=== PATIENT | male | born 1965 | race Caucasian/White ===

== ENCOUNTER → 2022-06-08 | Outpatient (CLI) | payer BC ==
[~2022-06-08] MED LIST: ALLO300T OR; AMLO25TA PO; ATEN25TA OR; BP MED PO; EMERON; EMERON OR; GOUT MED PO; HYDR25TA6; HYDR25TA6 OR; K-TA10TA OR; KLOR10TA; KLOR10TA OR; LISI10TA4; LISI10TA4 OR; LISI20TA5 OR; NIFE30TA2 OR; PENTASA; PENTASA OR; PRED20TA; TORS5TAB OR
== END ==
LOC: M SLEEP 20:00
PROVIDERS: ATTEND Physician Assistant
DX: G47.33 Obstructive sleep apnea (adult) (pediatric) (principal)